=== PATIENT | female | born 1955 | race Caucasian/White ===

== ENCOUNTER 2022-07-08 09:56 | Outpatient (CLI) | payer MEDICARE ==
--- NOTE | 2022-07-16 11:30 | Mammography Report ---
BILATERAL DIGITAL SCREENING MAMMOGRAM 3D/2D: 07/08/2022 CLINICAL: Routine screening. Family history of breast cancer. No prior exams were available for comparison. There are scattered areas of fibroglandular density in both breasts (category b / 25%-50% glandular t issue). There is a high density asymmetry in the left breast at 5 o'clock anterior depth. There hearing aid dispenser ural distortion associated with the asymmetry. No other significant masses, calcifications, or other findings are seen in either breast. IMPRESSION: INCOMPLETE: NEEDS ADDITIONAL IMAGING EVALUATION The high density asymmetry in the left breast is indeterminate. Additional views with possible ultra sound are recommended. Based on the Tyrer Cuzick model (a risk assessment model) the patients lifetime risk is 4.1% and her 10 year risk is 2.1%. According to the ACR, ACS, and NCCN guidelines, an annual breast MRI exam jose armando g with mammogram is recommended if the patients lifetime risk is 20% or greater. This exam was interpreted at Station ID: [id number]. NOTE: For mammograms, a report in lay terms will be sent to the patient. Approximately 15% of breast malignancies will not be visualized mammographically. In the management of a palpable breast mass, a negative mammogram must not discourage biopsy of a clinically suspicious lesion. Electronically Signed By: Cammie lal/rj:07/15/2022 10:30:45 ACR BI-RADS Category 0: Incomplete 3340F PARENCHYMAL PATTERN: (A) - The breast(s) demonstrate(s) scattered fibroglandular densities. BI-RADS CATEGORY: (0) - 0 Mammo and [place] [id number] Immediate follow-up LATERALITY: (B)
== END 2022-07-08 09:57 | disposition home or self-care (01) ==
LOC: DI.S 09:56
PROVIDERS: ATTEND Internal Medicine
DX: Z12.31 Encounter for screening mammogram for malignant neoplasm of breast (principal); Z80.3 Family history of malignant neoplasm of breast; R92.8 Other abnormal and inconclusive findings on diagnostic imaging of breast

== ENCOUNTER 2022-08-14 09:55 | Outpatient (CLI) | payer MEDICARE ==
--- NOTE | 2022-08-15 12:20 | Ultrasound Report ---
LIMITED ULTRASOUND OF LEFT BREAST: 08/14/2022 CLINICAL: Patient returns today to evaluate an architectural distortion in the left breast. Comparison is made to exams dated: 07/08/2022 mammogram and 08/14/2022 mammogram - [facility]. Color flow and real-time ultrasound of the left breast 5 o'clock, and retroareolar regions were perfo rmed. Rodriguez scale images of the real-time examination were reviewed. No significant abnormalities were seen sonographically in the left breast. IMPRESSION: NEGATIVE There is no sonographic evidence of malignancy. A 1 year screening mammogram is recommended. Exam findings were conveyed to the patient. This exam was interpreted at Station ID: [id number]. Electronically Signed By: Amado Fish M.D. slc/:08/14/2022 10:56:59 Ultrasound BI-RADS: 1 Negative BI-RADS CATEGORY: (1) - 1 Mammogram [id number] 1 year screening LATERALITY: (B)
--- NOTE | 2022-08-15 12:20 | Mammography Report ---
UNILATERAL LEFT DIGITAL DIAGNOSTIC MAMMOGRAM 3D/2D: 08/14/2022 CLINICAL: Patient returns today to evaluate a focal asymmetry in the left breast. Comparison is made to exam dated: 07/08/2022 mammogram - [facility]. There are scattered areas of fibroglandular density in the left breast (category b / 25%-50% glandula r tissue). There is a possible asymmetry in the left breast at 5 o'clock anterior depth. This is not seen in ad ditional views. No other significant masses or calcifications are seen in the breast. IMPRESSION: INCOMPLETE: NEEDS ADDITIONAL IMAGING EVALUATION The possible asymmetry in the left breast is indeterminate. A targeted ultrasound is recommended and will immediately follow. Based on the Tyrer Cuzick model (a risk assessment model) the patients lifetime risk is 4.1% and her 10 year risk is 2.1%. According to the ACR, ACS, and NCCN guidelines, an annual breast MRI exam jose armando g with mammogram is recommended if the patients lifetime risk is 20% or greater. This exam was interpreted at Station ID: [id number]. NOTE: For mammograms, a report in lay terms will be sent to the patient. Approximately 15% of breast malignancies will not be visualized mammographically. In the management of a palpable breast mass, a negative mammogram must not discourage biopsy of a clinically suspicious lesion. Electronically Signed By: Amado Fish M.D. slc/:08/14/2022 10:55:32 ACR BI-RADS Category 0: Incomplete 3340F PARENCHYMAL PATTERN: (A) - The breast(s) demonstrate(s) scattered fibroglandular densities. BI-RADS CATEGORY: (0) - 0 Ultrasound [id number] Immediate follow-up LATERALITY: (B)
== END 2022-08-14 09:56 | disposition home or self-care (01) ==
LOC: DI 09:55
PROVIDERS: ATTEND Internal Medicine
DX: R92.8 Other abnormal and inconclusive findings on diagnostic imaging of breast (principal)

== ENCOUNTER 2022-12-18 07:33 | Outpatient (CLI) | payer MEDICARE ==
[2022-12-18 14:50] LABS: BASOPHILS % (AUTO) 0.7 %; EOSINOPHILS # (AUTO) 0.2 10^3/uL (0.0-0.7); EOSINOPHILS % (AUTO) 3.8 %; HCT - HEMATOCRIT 43.4 % (37.0-47.0); HGB - HEMOGLOBIN 13.8 g/dL (12.0-16.0); LYMPHOCYTES # (AUTO) 1.6 10^3/uL (1.5-3.5); LYMPHOCYTES % (AUTO) 29.4 %; MEAN CORPUSCULAR HEMOGLOBIN 30.4 pg (27.0-31.0); MEAN CORPUSCULAR HGB CONC 31.8 g/dL (32.0-36.0); MEAN CORPUSCULAR VOLUME 95.6 fL (81.0-99.0); MEAN PLATELET VOLUME 10.1 fL (7.9-10.8); MONOCYTES # (AUTO) 0.5 10^3/uL (0.0-1.0); NEUTROPHILS # (AUTO) 3.2 10^3/uL (1.5-6.6); NEUTROPHILS % (AUTO) 56.9 %; PLT - PLATELET COUNT 255 10^3/uL (130-450); RED BLOOD COUNT 4.54 10^6/uL (4.20-5.40); RED CELL DISTRIBUTION WIDTH 12.9 % (12.0-15.0); WHITE BLOOD COUNT 5.6 x10^3/uL (4.8-10.8)
[2022-12-18 15:18] LABS: ALBUMIN 4.1 g/dL (3.2-5.5); ALBUMIN/GLOBULIN RATIO 1.2 (1.0-2.2); ALKALINE PHOSPHATASE 68 IU/L (42-121); ALT ALANINE AMINOTRANSFERASE 29 IU/L (10-60); AST ASPARTATE AMINOTRANSFERASE 25 IU/L (10-42); BILIRUBIN,TOTAL 0.4 mg/dL (0.2-1.0); BUN - BLOOD UREA NITROGEN 18 mg/dL (6-20); CALCIUM 9.2 mg/dL (8.5-10.3); CARBON DIOXIDE - CO2 28 mmol/L (21-32); CHLORIDE 107 mmol/L (101-111); CHOL/HDL RATIO 4.5 (<4.4); CHOLESTEROL 253 mg/dL; CREATININE 0.8 mg/dL (0.4-1.0); GFR - MDRD 72 (>89); GLUCOSE 116 mg/dL (70-100); HDL CHOLESTEROL 56 mg/dL; LDL CHOLESTEROL,CALCULATED 161 mg/dL; LDL/HDL RATIO 2.9 (<4.4); POTASSIUM 4.6 mmol/L (3.5-5.0); SODIUM 140 mmol/L (135-145); TOTAL PROTEIN 7.5 g/dL (6.7-8.2); TRIGLYCERIDES 178 mg/dL; VLDL CHOLESTEROL 36 mg/dL
[2022-12-22 10:08] LABS: HCV RNA QUANTITATION HCV Not Detected IU/mL (.)
== END 2022-12-18 07:34 | disposition home or self-care (01) ==
LOC: LAB.S 07:33
PROVIDERS: ATTEND Internal Medicine
DX: Z00.00 Encounter for general adult medical examination without abnormal findings (principal); F41.9 Anxiety disorder, unspecified; I63.9 Cerebral infarction, unspecified; J44.9 Chronic obstructive pulmonary disease, unspecified; E78.5 Hyperlipidemia, unspecified; Z86.16 Personal history of COVID-19; Z11.59 Encounter for screening for other viral diseases; Z79.899 Other long term (current) drug therapy
CPT/HCPCS: 36415; 80053; 80061; 83721; 84443; 85025; 87522

== ENCOUNTER 2023-09-07 07:49 | Day surgery (SDC) | payer MEDICARE, MEDICAID ==
[2023-09-07] MEDS: LACTATED RINGERS 1,000 ML IV ONE ×2 (08:15→10:10)
--- NOTE | 2023-09-07 09:21 | ANESTHESIA ---
Pre-Anesthesia VS, & Labs - Diagnosis positive Cologuard - Procedure colonoscopy Vital Signs: Temp Pulse Resp BP Pulse Ox O2 Flow Rate 36.3 C L 72 11 L 133/80 H 96 09/07/23 08:15 09/07/23 08:15 09/07/23 08:15 09/07/23 08:15 09/07/23 08:15 Height: 5 ft 5 in Weight (kg): 84.5 kg Body Mass Index: 30.9 BMI Classification: Obese - NPO Last Fluid Intake: 0600 Last Food Intake: >8hr - Is Patient ?: No Comments:: post menopausal Home Medications and Allergies Home Medications: Ambulatory Orders Escitalopram [Lexapro] 10 mg PO DAILY 09/07/23 Ezetimibe [Zetia] 10 mg PO QD 09/07/23 Fluticasone Propion/Salmeterol [Fluticasone-Salmeterol 250-50] 1 each IH BID 09/07/23 Escitalopram [Lexapro] 10 mg PO DAILY 09/07/23 Ezetimibe [Zetia] 10 mg PO QD 09/07/23 Fluticasone Propion/Salmeterol [Fluticasone-Salmeterol 250-50] 1 each IH BID 09/07/23 Allergies/Adverse Reactions: Allergies Allergy/AdvReac Type Severity Reaction Status Date / Time Sulfa (Sulfonamide Allergy Respiratory Verified 09/04/23 14:03 Antibiotics) Anes History & Medical History - Anesthetic History Anesthesia Complications: reports: No previous complications Family history of Anesthesia Complications: Denies - Medical History Cardiovascular: reports: High cholesterol, Angina (random, last time was last month, does not take anything for it) Pulmonary: reports: Asthma, COPD, Shortness of breath Gastrointestinal: reports: Chronic constipation Urinary: reports: None Neuro: reports: CVA (a "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, memory issues, eyesight) Musculoskeletal: reports: Chronic back pain Endocrine/Autoimmune: reports: None Skin: reports: None Smoking Status: Former smoker (vapes, smoked 50 years) Psychosocial: reports: No issues indicated - Surgical History General: reports: Cholecystectomy Cardiothoracic: reports: Other Urologic: reports: Bladder surgery Gynecologic: reports: Hysterectomy Results - EKG Results EKG Comparison: Reviewed EKG (nsr) Exam General: Alert Dental: Partials Upper, Partials Lower Mouth Openin Fingerbreadth Neck Mobility: Normal Mallampati classification: II Thyromental Distance: 4-6 cm Plan Anesthesia Type: Total IV Consent for Procedure(s) Verified and Reviewed: Yes Code Status: Attempt Resuscitation ASA classification: 2-Mild systemic disease Is this case an emergency?: No
[2023-09-07] MEDS ORDERED: PROPOFOL 500 MG/50 ML 500 MG/50 ML VIAL ONE (09:28)
[2023-09-07] MEDS ORDERED: LIDOCAINE-MPF 2% 5 ML VIAL ONE (09:28)
--- NOTE | 2023-09-07 10:35 | ANESTHESIA POST OP EVALUATION ---
Anesthesia Post Eval - Post Anesthesia Eval Vitals: Last Vital Signs Temp 36.3 C L 09/07/23 10:10 Pulse 71 09/07/23 10:10 Resp 17 09/07/23 10:10 BP 104/51 L 09/07/23 10:10 Pulse Ox 96 09/07/23 10:10 O2 Flow Rate CV Function Including HR & BP: Stable Pain Control: Satisfactory Nausea & Vomiting: Negative Mental Status: Baseline Respiratory Status: Airway Patent Hydration Status: Satisfactory Anesthesia Complications: None
[2023-09-07 10:51] VITALS: BP 144/54; O2SAT 97
== END 2023-09-07 07:50 | disposition home or self-care (01) ==
LOC: SDS 07:49
PROVIDERS: ATTEND Surgery
PROC: 0DBN8ZZ Excision of Sigmoid Colon, Via Natural or Artificial Opening Endoscopic (ICD-10-PCS; principal; 2023-09-07 09:45)
DX: Z12.11 Encounter for screening for malignant neoplasm of colon (principal); R19.5 Other fecal abnormalities; K63.5 Polyp of colon; K57.30 Diverticulosis of large intestine without perforation or abscess without bleeding; E66.9 Obesity, unspecified; Z68.30 Body mass index [BMI] 30.0-30.9, adult; J44.9 Chronic obstructive pulmonary disease, unspecified; Z86.73 Personal history of transient ischemic attack (TIA), and cerebral infarction without residual deficits; F17.209 Nicotine dependence, unspecified, with unspecified nicotine-induced disorders
CPT/HCPCS: 45380; J7120

== ENCOUNTER 2023-11-17 09:19 | Outpatient (CLI) | payer MEDICARE, MEDICAID ==
--- NOTE | 2023-11-17 10:39 | XRAY Report ---
PROCEDURE: Hips w/Pelvis 2-3V BL INDICATIONS: BILATERAL HIP PAIN TECHNIQUE: 3 view(s) of the hip were acquired. COMPARISON: None. FINDINGS: Bones: Mild to moderate bilateral hip arthrosis. Lumbosacral degenerative changes partially seen. No acute displaced fracture or dislocation. Soft tissues: No suspicious calcifications. IMPRESSION: Mild to moderate bilateral hip arthrosis. No acute radiographic abnormality. If there is high concern for further derangement, consider MRI evaluation. Reviewed by: Ivan Jacobs MD on 11/17/2023 10:37 AM PDT Approved by: Ivan Jacobs MD on 11/17/2023 10:37 AM PDT Station ID: [id number]
== END 2023-11-17 09:20 | disposition home or self-care (01) ==
LOC: DI.S 09:19
PROVIDERS: ATTEND Internal Medicine
DX: M16.0 Bilateral primary osteoarthritis of hip (principal)